=== PATIENT | female | born 1940 | race Asian ===

== ENCOUNTER 2020-04-01 12:06 | Inpatient (IN) | payer OTHER, BC ==
[~2020-04-01] VITALS: Ht 160 cm; Wt 50.8 kg
[2020-04-01 12:06] VITALS: BP_SYST 154
[2020-04-01] MEDS ORDERED: LIDOCAINE 1% 10 MG/ML, 20 ML MDV INJ ONE (12:45)
[2020-04-01] MEDS ORDERED: LIDOCAINE/EPI 1% 1:100000 20 ML VIAL INJ ONE (12:55)
[2020-04-01 14:22] LABS: ANION GAP 13 (5-15); CALCIUM 8.5 mg/dL (8.4-11.0); CHLORIDE 104 mmol/L (98-107); CREATININE 1.08 mg/dL (0.55-1.30); GLUCOSE 270 mg/dL (70-99); POTASSIUM 3.5 mmol/L (3.5-5.1); SODIUM SERUM 140 mmol/L (136-145); UREA NITROGEN, BLOOD 19 mg/dL (8-21)
[2020-04-01 14:23] LABS: BASOPHILS % (AUTO) 0.4 % (0.0-2.0); EOSINOPHILS # (AUTO) 0.1 K/uL (0.0-0.4); EOSINOPHILS % (AUTO) 0.7 % (0.0-4.0); HEMATOCRIT 33.9 % (36-48); HEMOGLOBIN 11.4 g/dL (12.0-16.0); LYMPHOCYTES # (AUTO) 3.5 K/uL (1.0-5.5); LYMPHOCYTES % (AUTO) 37.2 % (20.5-51.5); MEAN CORPUSCULAR HEMOGLOBIN 34 pg (27-31); MEAN CORPUSCULAR HGB CONC 34 % (32-36); MEAN CORPUSCULAR VOLUME 102 fL (79.0-98.0); MONOCYTES # (AUTO) 0.5 K/uL (0.0-1.0); MONOCYTES % (AUTO) 4.8 % (1.7-9.3); NEUTROPHILS # (AUTO) 5.3 K/uL (1.8-7.7); NEUTROPHILS % (AUTO) 56.9 % (40.0-70.0); PLATELET COUNT (AUTO) 319 K/uL (130-430); RED BLOOD CELL COUNT(AUTO) 3.34 MIL/uL (4.2-6.2); RED CELL DISTRIBUTION WIDTH 13.5 % (9.0-15.0); WHITE BLOOD COUNT (AUTO) 9.4 K/uL (4.8-10.8)
[2020-04-01 14:28] LABS: ALANINE AMINOTRANSFERASE 25 U/L (12-78); ALBUMIN 3.3 g/dL (3.4-4.8); ASPARTATE AMINOTRANSFERASE 22 U/L (10-37); TOTAL BILIRUBIN 0.4 mg/dL (0.0-1.0)
[2020-04-01] MEDS ORDERED: INSULIN REGULAR, HUMAN 100 UNITS/ML, 10 ML VIAL (humuLIN R) SUBCUT PRN (17:45)
[2020-04-01] MEDS ORDERED: DEXTROSE 50% JECT 50 ML DISP.SYRIN IVP PRN (17:45)
[2020-04-01 21:13] VITALS: BP_SYST 110
[2020-04-01] MEDS: NACL 0.9% 1,000 ML IV SCH (23:00)
[2020-04-02] MEDS: NACL 0.9% 1,000 ML IV SCH (02:30)
[2020-04-02 03:37] VITALS: BP_SYST 111
[2020-04-02 06:51] LABS: BASOPHILS % (AUTO) 0.2 % (0.0-2.0); EOSINOPHILS % (AUTO) 0.2 % (0.0-4.0); HEMATOCRIT 27.4 % (36-48); HEMOGLOBIN 9.4 g/dL (12.0-16.0); LYMPHOCYTES # (AUTO) 2.5 K/uL (1.0-5.5); LYMPHOCYTES % (AUTO) 25.8 % (20.5-51.5); MEAN CORPUSCULAR HEMOGLOBIN 34 pg (27-31); MEAN CORPUSCULAR HGB CONC 34 % (32-36); MEAN CORPUSCULAR VOLUME 99 fL (79.0-98.0); MONOCYTES # (AUTO) 0.6 K/uL (0.0-1.0); MONOCYTES % (AUTO) 6.5 % (1.7-9.3); NEUTROPHILS # (AUTO) 6.6 K/uL (1.8-7.7); NEUTROPHILS % (AUTO) 67.3 % (40.0-70.0); PLATELET COUNT (AUTO) 253 K/uL (130-430); RED BLOOD CELL COUNT(AUTO) 2.76 MIL/uL (4.2-6.2); RED CELL DISTRIBUTION WIDTH 13.3 % (9.0-15.0); WHITE BLOOD COUNT (AUTO) 9.9 K/uL (4.8-10.8)
[2020-04-02 07:17] LABS: ALANINE AMINOTRANSFERASE 26 U/L (12-78); ALBUMIN 3.3 g/dL (3.4-4.8); ANION GAP 10 (5-15); ASPARTATE AMINOTRANSFERASE 20 U/L (10-37); CALCIUM 8.1 mg/dL (8.4-11.0); CHLORIDE 108 mmol/L (98-107); CREATININE 0.83 mg/dL (0.55-1.30); GLUCOSE 112 mg/dL (70-99); SODIUM SERUM 141 mmol/L (136-145); THYROID STIMULATING HORMONE 0.58 uIu/mL (0.36-3.74); TOTAL BILIRUBIN 0.5 mg/dL (0.0-1.0); UREA NITROGEN, BLOOD 25 mg/dL (8-21)
[2020-04-02 08:00] VITALS: BP_SYST 116
[2020-04-02 08:23] LABS: CHOLESTEROL 169 mg/dL (<200); HDL CHOLESTEROL 44 mg/dL (>55); LDL CHOLESTEROL 99 mg/dL (<100); TRIGLYCERIDES 121 mg/dL (30-150)
[2020-04-02] MEDS ORDERED: OMEP20CA15 PO (10:09)
[2020-04-02] MEDS ORDERED: DOCU250C71 PO (10:09)
[2020-04-02] MEDS ORDERED: FENO48TA7 PO (10:09)
[2020-04-02] MEDS ORDERED: CLOP75TA32 PO (10:09)
[2020-04-02] MEDS ORDERED: ZOLP10TA2 PO (10:09)
[2020-04-02] MEDS ORDERED: LIPA1CAP23 PO (10:09)
[2020-04-02] MEDS ORDERED: LIP20 PO (10:09)
[2020-04-02] MEDS ORDERED: GABA-529 PO (10:09)
[2020-04-02 11:31] VITALS: BP_SYST 111
[2020-04-02 15:28] VITALS: BP_SYST 114
[2020-04-02 15:38] VITALS: BP_SYST 114
[2020-04-02 16:00] VITALS: BP_SYST 114
== END 2020-04-02 16:25 | disposition home health service (06) | DRG 605 ==
LOC: SED 12:06 → STU 15:41
PROVIDERS: ADMIT Internal Medicine Hospice and Palliative Medicine; ATTEND Internal Medicine Hospice and Palliative Medicine
DX: S01.01XA Laceration without foreign body of scalp, initial encounter (principal); S09.90XA Unspecified injury of head, initial encounter; R27.0 Ataxia, unspecified; Z20.828 Contact with and (suspected) exposure to other viral communicable diseases; W01.0XXA Fall on same level from slipping, tripping and stumbling without subsequent striking against object, initial encounter; Y93.89 Activity, other specified; Y92.89 Other specified places as the place of occurrence of the external cause; Y99.8 Other external cause status; Z90.710 Acquired absence of both cervix and uterus
CPT/HCPCS: 13121; 36415; 70450-TC; 71045; 76376; 80053; 80061; 82550-TC; 82962; 83735-TC; 83880; 84443-TC; 84484; 85025; 93005; 93306; 99285; G0378; J1815